=== PATIENT | female | born 1950 | race African-American/Black ===

== ENCOUNTER 2017-02-24 12:42 | Observation (INO) ==
[2017-02-24] MEDS ORDERED: SODIUM CHLORIDE 0.9% 1,000 ML IV STA (13:27)
[2017-02-24 14:01] LABS: Basophils # 0.1 10*3/uL (0.0-0.2); Basophils % 0.7 % (0.0-0.8); Eosinophils # 0.1 10*3/uL (0.0-0.87); Eosinophils % 1.9 % (0.00-10.9); Hematocrit 37.4 VOL% (35.7-47.0); Hemoglobin 11.7 GM/DL (12.0-16.0); Immature Granulocytes % 0.1 %; Immature Granulocytes Absolute 0.01 #; Lymphocytes % 28.4 % (21.3-54.2); Mean Corpuscular HGB Conc 31.3 GM/DL (32-36); Mean Corpuscular Hemoglobin 26 PG (27-34); Mean Corpuscular Volume 82.7 FL (87-102); Mean Platelet Volume 10.4 FL (9.6-12.0); Monocytes # 0.4 10*3/uL (0.11-0.8); Monocytes % 5.7 % (1.7-12.7); Neutrophils # 4.5 10*3/uL (1.4-7.4); Neutrophils % 63.2 % (38.7-73.9); Platelet Count 294 T/CUMM (130-400); Red Blood Count 4.52 MC/CUMM (3.8-5.5); Red Cell Distribution Width 12.5 % (9.3-17.3); White Blood Count 7.2 T/CUMM (4-12)
[2017-02-24 14:02] LABS: VBG Base Excess -0.9 MEQ/L (0-4); VBG HCO3 23.4 MEQ/L (24-28); VBG Oxygen Saturation 81.9 %; VBG PCO2 42.7 MMHG (41-51); VBG PH 7.367; VBG PO2 48.4 MMHG (17-40)
[2017-02-24 14:25] LABS: Calcium 9.2 MG/DL (8.5-10.1); Osmolality,Calculated 291.4 MOS/KG (273-304); Potassium 3.7 MMOL/L (3.5-5.1)
[2017-02-24 14:25] LABS: Apearance,Urine CLEAR (Clear); Bilirubin,Urine Negative (Negative); Blood, Urine Negative (Negative); Glucose,Urine (UA) >=500 mg/dL (Negative); Ketones,Urine Negative (Negative); Mucus,Urine Occasional /LPF (Occasional); Nitrite,Urine Negative (Negative); Protein,Urine 30 MG/DL; RBC,Urine <1 /HPF (0-4); Squamous Epithelial Cell,Urine Occasional /HPF (0-10); Urine Color Yellow (Yellow); Urine Specific Gravity 1.021 (1.001-1.035); Urine Urobilinogen < 2.0 EU/DL (0.2-1.0); WBC,Urine 3 /HPF (0-6)
[2017-02-24] MEDS ORDERED: LORazepam 2 MG/1 ML VIAL IV STA (15:13)
[2017-02-24] MEDS ORDERED: levETIRAcetam 500 MG/5 ML VIAL IV ONE (15:14)
[2017-02-24] MEDS ORDERED: LORazepam 2 MG/1 ML VIAL ONE (15:14)
[2017-02-24] MEDS ORDERED: DEXTROSE 50% 25 GM/50 ML VIAL IV PRN ×2 (16:53→16:54)
[2017-02-24] MEDS ORDERED: GLUCAGON 1 MG VIAL IM PRN ×2 (16:53→16:54)
[2017-02-24] MEDS ORDERED: ONDANSETRON 4 MG/2 ML VIAL IV PRN (16:54)
[2017-02-24] MEDS ORDERED: ACETAMINOPHEN 325 MG TABLET PO PRN (16:54)
[2017-02-24] MEDS ORDERED: LORazepam 2 MG/1 ML VIAL IV PRN (18:18)
[2017-02-24] MEDS ORDERED: ATORVASTATIN 40 MG TABLET PO SCH (21:00)
[2017-02-24] MEDS: INSULIN REGULAR 100 UNIT/ML SUBCUT SCH (21:48)
[2017-02-24] MEDS: DOCUSATE SODIUM 100 MG CAPSULE PO SCH (21:48)
[2017-02-24] MEDS: GABAPENTIN 100 MG CAPSULE PO SCH (21:48)
[2017-02-25 05:46] LABS: Basophils # 0.1 10*3/uL (0.0-0.2); Basophils % 0.6 % (0.0-0.8); Eosinophils # 0.3 10*3/uL (0.0-0.87); Eosinophils % 3.1 % (0.00-10.9); Hemoglobin 10.4 GM/DL (12.0-16.0); Immature Granulocytes % 0.2 %; Immature Granulocytes Absolute 0.02 #; Lymphocytes # 3.8 10*3/uL (1.4-4.0); Mean Corpuscular HGB Conc 31.5 GM/DL (32-36); Mean Corpuscular Hemoglobin 26 PG (27-34); Mean Corpuscular Volume 82.5 FL (87-102); Mean Platelet Volume 11.2 FL (9.6-12.0); Monocytes # 0.7 10*3/uL (0.11-0.8); Monocytes % 7.2 % (1.7-12.7); Neutrophils # 4.9 10*3/uL (1.4-7.4); Neutrophils % 49.9 % (38.7-73.9); Platelet Count 273 T/CUMM (130-400); Red Cell Distribution Width 12.5 % (9.3-17.3); White Blood Count 9.7 T/CUMM (4-12)
[2017-02-25 06:15] LABS: Bilirubin,Total 0.6 MG/DL (0.2-1.0); Calcium 8.7 MG/DL (8.5-10.1); Magnesium 1.5 MG/DL (1.8-2.4); Osmolality,Calculated 281.5 MOS/KG (273-304); Potassium 3.7 MMOL/L (3.5-5.1); Risk Ratio 3.04; Total Protein 6.5 G/DL (6.4-8.3); VLDL CHOLESTEROL 19.6 MG/DL
[2017-02-25] MEDS ORDERED: MAGNESIUM OXIDE 400 MG TABLET PO ONE (08:51)
[2017-02-25] MEDS ORDERED: PANTOPRAZOLE 40 MG TABLET PO SCH (09:00)
[2017-02-25] MEDS ORDERED: LISINOPRIL 20 MG TABLET PO SCH (09:00)
[2017-02-25] MEDS ORDERED: hydroCHLOROthiazide 12.5 MG CAPSULE PO SCH (09:00)
[2017-02-25] MEDS ORDERED: ASPIRIN EC 325 MG TABLET PO SCH (09:00)
[2017-02-25] MEDS ORDERED: MULTIVITAMIN (CENTRUM) TABLET PO SCH (09:00)
[2017-02-25 09:10] VITALS: BP 134/63
[2017-02-25] MEDS: INSULIN REGULAR 100 UNIT/ML SUBCUT SCH (09:42)
[2017-02-25] MEDS: DOCUSATE SODIUM 100 MG CAPSULE PO SCH (10:15)
[2017-02-25] MEDS: GABAPENTIN 100 MG CAPSULE PO SCH (10:16)
== END 2017-02-25 11:45 | disposition home or self-care (01) ==
LOC: EDUNIT# → EDBD → N.EDINP 12:42 → N.ED 12:42 → N.2E 17:32
PROVIDERS: ADMIT Internal Medicine Geriatric Medicine; ATTEND Internal Medicine Geriatric Medicine